=== PATIENT | male | born 1990 | race Caucasian/White ===

== ENCOUNTER 2020-02-01 08:05 | Outpatient (REF) | payer OTHER, SELFPAY ==
[2020-02-01 09:49] LABS: Hematocrit 51.6 % (42-52); Hemoglobin 17.9 g/dl (14.0-18.0); Mean Corpuscular HGB Conc 34.7 g/dl (31.0-36.0); Mean Corpuscular Hemoglobin 32.2 pg (27.0-33.0); Mean Corpuscular Volume 92.8 fL (80-98); Mean Platelet Volume 10.8 fL (9.4-12.4); Platelet Count 183 X10*3/uL (160-400); Red Blood Count 5.56 X10*6/uL (4.60-5.80); Red Cell Distribution Width 12.6 % (11.0-16.0)
[2020-02-01 10:14] LABS: Alanine Aminotransferase 57 U/L (0-40); Albumin Level 4.4 g/dL (3.5-5.0); Alkaline Phosphatase 51 U/L (39-117); Amylase 63 U/L (28-100); Anion Gap 12 (12-20); Aspartate Amino Transferase 31 U/L (5-37); Bilirubin Direct 0.2 mg/dL (0.0-0.5); Bilirubin Total 0.8 mg/dL (0.0-1.0); Blood Urea Nitrogen 13 mg/dL (9-16); Calcium 9.4 mg/dL (8.4-10.2); Carbon Dioxide 30 mmol/L (22-29); Chloride 102 mmol/L (96-108); Estimated Glomerular Filt Rate > 60; Glucose Random 82 mg/dL (60-115); Lipase 32 U/L (8-78); Phosphorus 3.8 mg/dL (2.7-4.5); Potassium 4.4 mmol/l (3.3-5.1); Sodium 140 mmol/L (135-145); Total Protein 6.9 g/dL (6.5-8.0)
[2020-02-01 10:36] LABS: Vitamin D 25-OH Total 29.3 ng/mL (>30)
[2020-02-01 10:44] LABS: Valproate 58.7 mcg/mL (50.0-100.0)
== END 2020-02-01 08:06 | disposition home or self-care (01) ==
LOC: HO.LAB 08:05
PROVIDERS: PCP Internal Medicine; Visit Provider Psychiatry & Neurology Neurology with Special Qualifications in Child Neurology
DX: G40.909 Epilepsy, unspecified, not intractable, without status epilepticus (principal)
CPT/HCPCS: 36415; 80048; 80076; 80164; 82150; 82306; 83690; 83735; 84100; 85027

== ENCOUNTER 2020-08-05 08:07 | Outpatient (REF) | payer OTHER, SELFPAY ==
[2020-08-05 08:59] LABS: Hematocrit 49.4 % (42-52); Hemoglobin 17.2 g/dl (14.0-18.0); Mean Corpuscular HGB Conc 34.8 g/dl (31.0-36.0); Mean Corpuscular Hemoglobin 32.1 pg (27.0-33.0); Mean Corpuscular Volume 92.3 fL (80-98); Mean Platelet Volume 11.7 fL (9.4-12.4); Platelet Count 159 X10*3/uL (160-400); Red Blood Count 5.35 X10*6/uL (4.60-5.80); Red Cell Distribution Width 12.9 % (11.0-16.0); White Blood Count 5.3 X10*3/uL (4.8-10.8)
[2020-08-05 09:24] LABS: Alanine Aminotransferase 54 U/L (0-40); Albumin Level 4.3 g/dL (3.5-5.0); Alkaline Phosphatase 54 U/L (39-117); Amylase 60 U/L (28-100); Anion Gap 11 (12-20); Aspartate Amino Transferase 28 U/L (5-37); Bilirubin Direct 0.3 mg/dL (0.0-0.5); Bilirubin Total 0.8 mg/dL (0.0-1.0); Blood Urea Nitrogen 12 mg/dL (9-16); Calcium 9.9 mg/dL (8.4-10.2); Carbon Dioxide 31 mmol/L (22-29); Chloride 102 mmol/L (96-108); Cholesterol 185 mg/dL; Estimated Glomerular Filt Rate > 60; Glucose Random 90 mg/dL (60-115); HDL Cholesterol 41 mg/dL; LDL Cholesterol Calculated 86 mg/dl; Lipase 34 U/L (8-78); Magnesium 1.9 mg/dL (1.6-2.6); Phosphorus 3.2 mg/dL (2.7-4.5); Potassium 4.5 mmol/L (3.3-5.1); Sodium 139 mmol/L (135-145); Total Protein 6.8 g/dL (6.5-8.0); Triglycerides 294 mg/dL
[2020-08-05 09:45] LABS: Vitamin D 25-OH Total 32.6 ng/mL (>30)
[2020-08-05 09:53] LABS: Valproate 71.2 mcg/mL (50.0-100.0)
[2020-08-08 17:37] LABS: Lamotrigine Lamictal 8.7 mcg/mL (4.0-18.0)
== END 2020-08-05 08:08 | disposition home or self-care (01) ==
LOC: HO.LAB 08:07
PROVIDERS: Absent Provider Psychiatry & Neurology Neurology with Special Qualifications in Child Neurology; PCP Internal Medicine; Visit Provider Internal Medicine
DX: Z13.220 Encounter for screening for lipoid disorders (principal); G40.909 Epilepsy, unspecified, not intractable, without status epilepticus; Z51.81 Encounter for therapeutic drug level monitoring
CPT/HCPCS: 36415; 80048; 80061; 80076; 80164; 80175; 82150; 82306; 83690; 83735; 84100; 85027

== ENCOUNTER 2021-01-30 08:28 | Outpatient (REF) | payer OTHER, SELFPAY ==
[2021-01-30 09:57] LABS: Valproate 71.8 mcg/mL (50.0-100.0)
[2021-01-30 09:59] LABS: Alanine Aminotransferase 67 U/L (0-40); Albumin Level 4.2 g/dL (3.5-5.0); Alkaline Phosphatase 57 U/L (39-117); Amylase 63 U/L (28-100); Anion Gap 11 (12-20); Aspartate Amino Transferase 31 U/L (5-37); Bilirubin Direct 0.2 mg/dL (0.0-0.5); Bilirubin Total 0.7 mg/dL (0.0-1.0); Blood Urea Nitrogen 10 mg/dL (9-16); Calcium 9.2 mg/dL (8.4-10.2); Carbon Dioxide 29 mmol/L (22-29); Chloride 103 mmol/L (96-108); Estimated Glomerular Filt Rate > 60; Glucose Random 89 mg/dL (60-115); Lipase 37 U/L (8-78); Potassium 4.3 mmol/L (3.3-5.1); Sodium 139 mmol/L (135-145); Total Protein 6.7 g/dL (6.5-8.0)
[2021-01-30 10:21] LABS: Vitamin D 25-OH Total 31.5 ng/mL (>30)
[2021-02-03 01:02] LABS: Lamotrigine Lamictal 8.3 mcg/mL (4.0-18.0)
== END 2021-01-30 08:29 | disposition home or self-care (01) ==
LOC: HO.LAB 08:28
PROVIDERS: PCP Internal Medicine; Visit Provider Psychiatry & Neurology Neurology with Special Qualifications in Child Neurology
DX: G40.919 Epilepsy, unspecified, intractable, without status epilepticus (principal); E55.9 Vitamin D deficiency, unspecified; Z79.899 Other long term (current) drug therapy
CPT/HCPCS: 36415; 80053; 80164; 80175; 82150; 82248; 82306; 83690

== ENCOUNTER 2021-08-07 08:11 | Outpatient (REF) | payer OTHER, SELFPAY ==
[2021-08-07 08:29] LABS: MANUAL DIFF FLAG NO
[2021-08-07 08:48] LABS: Basophils Absolute Auto 0.1 X10*3/uL (0.0-0.2); Eosinophils Absolute Auto 0.1 X10*3/uL (0.0-0.4); Eosinophils Percent Auto 2.3 % (0-4); Hematocrit 47.6 % (42.0-52.0); Hemoglobin 16.6 g/dl (14.0-18.0); Imm Gran Abs Auto 0.02 X10*3/uL (0.00-0.03); Imm Gran Pct Auto 0.4 % (0.0-0.4); Lymphocytes Percent Auto 39.5 % (20-40); Mean Corpuscular HGB Conc 34.9 g/dl (31.0-36.0); Mean Corpuscular Hemoglobin 31.5 pg (27.0-33.0); Mean Corpuscular Volume 90.3 fL (80.0-98.0); Mean Platelet Volume 10.7 fL (9.4-12.4); Monocytes Absolute Auto 0.5 X10*3/uL (0.1-1.2); Neutrophils Absolute Auto 2.4 x10*3/uL (2.0-8.3); Neutrophils Percent Auto 46.8 % (45-73); Platelet Count 167 X10*3/uL (160-400); Red Blood Count 5.27 X10*6/uL (4.60-5.80); Red Cell Distribution Width 12.8 % (11.0-16.0); White Blood Count 5.1 X10*3/uL (4.8-10.8)
[2021-08-07 09:28] LABS: Alanine Aminotransferase 45 U/L (0-40); Alkaline Phosphatase 56 U/L (39-117); Amylase 60 U/L (28-100); Anion Gap 12 (12-20); Aspartate Amino Transferase 26 U/L (5-37); Bilirubin Direct 0.2 mg/dL (0.0-0.5); Bilirubin Total 0.8 mg/dL (0.0-1.0); Blood Urea Nitrogen 13 mg/dL (9-16); Calcium 9.7 mg/dL (8.4-10.2); Carbon Dioxide 29 mmol/L (22-29); Chloride 104 mmol/L (96-108); Cholesterol 173 mg/dL; Estimated Glomerular Filt Rate > 60; Glucose Fasting 86 mg/dL (60-99); HDL Cholesterol 35 mg/dL; LDL Cholesterol Calculated 100 mg/dl; Lipase 35 U/L (8-78); Potassium 4.6 mmol/L (3.3-5.1); Sodium 140 mmol/L (135-145); Total Protein 6.4 g/dL (6.5-8.0); Triglycerides 192 mg/dL; Valproate 84.2 mcg/mL (50.0-100.0)
[2021-08-07 09:50] LABS: Vitamin D 25-OH Total 27.4 ng/mL (>30)
== END 2021-08-07 08:12 | disposition home or self-care (01) ==
LOC: HO.LAB 08:11
PROVIDERS: Absent Provider Psychiatry & Neurology Neurology with Special Qualifications in Child Neurology; PCP Internal Medicine; Visit Provider Internal Medicine
DX: Z00.01 Encounter for general adult medical examination with abnormal findings (principal); E55.9 Vitamin D deficiency, unspecified
CPT/HCPCS: 36415; 80053; 80061; 80076; 80164; 82150; 82248; 82306; 83690; 85025

== ENCOUNTER 2022-01-29 07:59 | Outpatient (REF) | payer OTHER, SELFPAY ==
[2022-01-29 08:31] LABS: MANUAL DIFF FLAG NO
[2022-01-29 09:51] LABS: Basophils Absolute Auto 0.1 X10*3/uL (0.0-0.2); Basophils Percent Auto 1.3 % (0-2); Eosinophils Absolute Auto 0.2 X10*3/uL (0.0-0.4); Eosinophils Percent Auto 2.7 % (0-4); Hematocrit 50.4 % (42.0-52.0); Hemoglobin 17.1 g/dl (14.0-18.0); Imm Gran Abs Auto 0.04 X10*3/uL (0.00-0.03); Imm Gran Pct Auto 0.7 % (0.0-0.4); Lymphocytes Absolute Auto 2.6 X10*3/uL (1.2-4.9); Mean Corpuscular HGB Conc 33.9 g/dl (31.0-36.0); Mean Corpuscular Volume 91.5 fL (80.0-98.0); Mean Platelet Volume 11.5 fL (9.4-12.4); Monocytes Absolute Auto 0.6 X10*3/uL (0.1-1.2); Monocytes Percent Auto 10.6 % (2-11); Neutrophils Absolute Auto 2.5 x10*3/uL (2.0-8.3); Neutrophils Percent Auto 41.7 % (45-73); Platelet Count 199 X10*3/uL (160-400); Red Blood Count 5.51 X10*6/uL (4.60-5.80); Red Cell Distribution Width 12.8 % (11.0-16.0)
[2022-01-29 10:27] LABS: Alanine Aminotransferase 71 U/L (0-40); Albumin Level 4.3 g/dL (3.5-5.0); Alkaline Phosphatase 58 U/L (39-117); Amylase 58 U/L (28-100); Anion Gap 16 (12-20); Aspartate Amino Transferase 35 U/L (5-37); Bilirubin Direct 0.3 mg/dL (0.0-0.5); Blood Urea Nitrogen 12 mg/dL (9-16); Calcium 10.2 mg/dL (8.4-10.2); Carbon Dioxide 29 mmol/L (22-29); Chloride 102 mmol/L (96-108); Estimated Glomerular Filt Rate > 60; Glucose Random 80 mg/dL (60-115); Lipase 32 U/L (8-78); Magnesium 1.9 mg/dL (1.6-2.6); Phosphorus 3.9 mg/dL (2.7-4.5); Potassium 4.6 mmol/L (3.3-5.1); Sodium 142 mmol/L (135-145); Total Protein 6.8 g/dL (6.5-8.0)
[2022-01-29 10:33] LABS: Valproate 73.3 mcg/mL (50.0-100.0)
[2022-01-29 10:48] LABS: Vitamin D 25-OH Total 25.3 ng/mL (>30)
[2022-02-02 20:47] LABS: Lamotrigine Lamictal 8.5 mcg/mL (4.0-18.0)
== END 2022-01-29 08:00 | disposition home or self-care (01) ==
LOC: HO.LAB 07:59
PROVIDERS: PCP Internal Medicine; Visit Provider Psychiatry & Neurology Neurology with Special Qualifications in Child Neurology
DX: G40.802 Other epilepsy, not intractable, without status epilepticus (principal); Z79.899 Other long term (current) drug therapy
CPT/HCPCS: 36415; 80048; 80076; 80164; 80175; 82150; 82306; 83690; 83735; 84100; 85025

== ENCOUNTER 2022-07-30 07:55 | Outpatient (REF) | payer OTHER, SELFPAY ==
[2022-07-30 08:17] LABS: MANUAL DIFF FLAG NO
[2022-07-30 08:34] LABS: Basophils Absolute Auto 0.1 X10*3/uL (0.0-0.2); Basophils Percent Auto 1.1 % (0-2); Eosinophils Absolute Auto 0.1 X10*3/uL (0.0-0.4); Eosinophils Percent Auto 1.2 % (0-4); Imm Gran Abs Auto 0.03 X10*3/uL (0.00-0.03); Imm Gran Pct Auto 0.4 % (0.0-0.4); Lymphocytes Absolute Auto 3.1 X10*3/uL (1.2-4.9); Mean Corpuscular Hemoglobin 30.6 pg (27.0-33.0); Mean Corpuscular Volume 90.1 fL (80.0-98.0); Mean Platelet Volume 11.1 fL (9.4-12.4); Monocytes Absolute Auto 0.7 X10*3/uL (0.1-1.2); Monocytes Percent Auto 9.2 % (2-11); Neutrophils Absolute Auto 3.4 x10*3/uL (2.0-8.3); Neutrophils Percent Auto 46.1 % (45-73); Platelet Count 182 X10*3/uL (160-400); Red Blood Count 5.55 X10*6/uL (4.60-5.80); Red Cell Distribution Width 12.9 % (11.0-16.0); White Blood Count 7.4 X10*3/uL (4.8-10.8)
[2022-07-30 08:52] LABS: Valproate 81.9 mcg/mL (50.0-100.0)
[2022-07-30 09:04] LABS: Alanine Aminotransferase 53 U/L (0-40); Albumin Level 4.2 g/dL (3.5-5.0); Alkaline Phosphatase 61 U/L (39-117); Amylase 56 U/L (28-100); Anion Gap 12 (12-20); Aspartate Amino Transferase 27 U/L (5-37); Bilirubin Direct 0.2 mg/dL (0.0-0.5); Bilirubin Total 0.8 mg/dL (0.0-1.0); Blood Urea Nitrogen 11 mg/dL (9-16); Calcium 10.1 mg/dL (8.4-10.2); Carbon Dioxide 31 mmol/L (22-29); Chloride 105 mmol/L (96-108); Cholesterol 185 mg/dL; Estimated Glomerular Filt Rate > 60; Glucose Fasting 90 mg/dL (60-99); Glucose Random 89 mg/dL (60-115); HDL Cholesterol 35 mg/dL; LDL Cholesterol Calculated 95 mg/dl; Lipase 49 U/L (8-78); Potassium 4.6 mmol/L (3.3-5.1); Sodium 143 mmol/L (135-145); Total Protein 6.6 g/dL (6.5-8.0); Triglycerides 275 mg/dL
[2022-07-30 09:18] LABS: Vitamin D 25-OH Total 30.2 ng/mL (>30)
[2022-08-03 19:08] LABS: Lamotrigine Lamictal 8.4 mcg/mL (2.5-15.0)
== END 2022-07-30 07:56 | disposition home or self-care (01) ==
LOC: HO.LAB 07:55
PROVIDERS: Absent Provider Psychiatry & Neurology Neurology with Special Qualifications in Child Neurology; PCP Internal Medicine; Visit Provider Internal Medicine
DX: Z00.01 Encounter for general adult medical examination with abnormal findings (principal); E55.9 Vitamin D deficiency, unspecified; Z20.2 Contact with and (suspected) exposure to infections with a predominantly sexual mode of transmission
CPT/HCPCS: 36415; 80053; 80061; 80164; 80175; 82150; 82248; 82306; 82947; 83690; 85025

== ENCOUNTER 2023-02-18 09:16 | Outpatient (REF) | payer OTHER, SELFPAY ==
[2023-02-18 09:28] LABS: MANUAL DIFF FLAG NO
[2023-02-18 10:12] LABS: Valproate 57.7 mcg/mL (50.0-100.0)
[2023-02-18 10:15] LABS: Alanine Aminotransferase 55 U/L (0-40); Albumin Level 4.2 g/dL (3.5-5.0); Alkaline Phosphatase 59 U/L (39-117); Anion Gap 11 (12-20); Aspartate Amino Transferase 30 U/L (5-37); Basophils Absolute Auto 0.1 X10*3/uL (0.0-0.2); Basophils Percent Auto 1.1 % (0-2); Bilirubin Direct 0.3 mg/dL (0.0-0.5); Bilirubin Total 0.9 mg/dL (0.0-1.0); Blood Urea Nitrogen 11 mg/dL (9-16); Calcium 10.1 mg/dL (8.4-10.2); Carbon Dioxide 31 mmol/L (22-29); Chloride 104 mmol/L (96-108); Eosinophils Absolute Auto 0.1 X10*3/uL (0.0-0.4); Eosinophils Percent Auto 1.5 % (0-4); Estimated Glomerular Filt Rate > 60; Glucose Random 85 mg/dL (60-115); Hematocrit 50.1 % (42.0-52.0); Hemoglobin 17.1 g/dl (14.0-18.0); Imm Gran Abs Auto 0.02 X10*3/uL (0.00-0.03); Imm Gran Pct Auto 0.3 % (0.0-0.4); Lipase 28 U/L (8-78); Lymphocytes Absolute Auto 2.2 X10*3/uL (1.2-4.9); Mean Corpuscular HGB Conc 34.1 g/dl (31.0-36.0); Mean Corpuscular Hemoglobin 30.9 pg (27.0-33.0); Mean Corpuscular Volume 90.4 fL (80.0-98.0); Mean Platelet Volume 11.1 fL (9.4-12.4); Monocytes Absolute Auto 0.6 X10*3/uL (0.1-1.2); Monocytes Percent Auto 10.2 % (2-11); Neutrophils Absolute Auto 3.1 x10*3/uL (2.0-8.3); Neutrophils Percent Auto 50.9 % (45-73); Platelet Count 192 X10*3/uL (160-400); Potassium 4.5 mmol/L (3.3-5.1); Red Blood Count 5.54 X10*6/uL (4.60-5.80); Sodium 141 mmol/L (135-145); Total Protein 6.9 g/dL (6.5-8.0); White Blood Count 6.2 X10*3/uL (4.8-10.8)
[2023-02-18 10:34] LABS: Vitamin D 25-OH Total 28.9 ng/mL (>30)
== END 2023-02-18 09:17 | disposition home or self-care (01) ==
LOC: HO.LAB 09:16
PROVIDERS: PCP Internal Medicine; Visit Provider Psychiatry & Neurology Neurology with Special Qualifications in Child Neurology
DX: G40.919 Epilepsy, unspecified, intractable, without status epilepticus (principal); E55.9 Vitamin D deficiency, unspecified
CPT/HCPCS: 36415; 80053; 80164; 82248; 82306; 83690; 85025

== ENCOUNTER 2023-09-02 09:11 | Outpatient (REF) | payer OTHER, SELFPAY ==
[2023-09-02 09:34] LABS: MANUAL DIFF FLAG NO
[2023-09-02 10:02] LABS: Basophils Absolute Auto 0.1 X10*3/uL (0.0-0.2); Basophils Percent Auto 1.4 % (0-2); Eosinophils Absolute Auto 0.1 X10*3/uL (0.0-0.4); Eosinophils Percent Auto 1.9 % (0-4); Hematocrit 50.5 % (42.0-52.0); Hemoglobin 17.7 g/dl (14.0-18.0); Imm Gran Abs Auto 0.03 X10*3/uL (0.00-0.03); Imm Gran Pct Auto 0.5 % (0.0-0.4); Lymphocytes Absolute Auto 2.7 X10*3/uL (1.2-4.9); Lymphocytes Percent Auto 42.4 % (20-40); Mean Corpuscular Hemoglobin 31.7 pg (27.0-33.0); Mean Corpuscular Volume 90.5 fL (80.0-98.0); Mean Platelet Volume 10.7 fL (9.4-12.4); Monocytes Absolute Auto 0.7 X10*3/uL (0.1-1.2); Monocytes Percent Auto 10.9 % (2-11); Neutrophils Absolute Auto 2.8 x10*3/uL (2.0-8.3); Neutrophils Percent Auto 42.9 % (45-73); Platelet Count 201 X10*3/uL (160-400); Red Blood Count 5.58 X10*6/uL (4.60-5.80); Red Cell Distribution Width 12.9 % (11.0-16.0); White Blood Count 6.4 X10*3/uL (4.8-10.8)
[2023-09-02 10:30] LABS: Valproate 67.2 mcg/mL (50.0-100.0)
[2023-09-02 10:39] LABS: Alanine Aminotransferase 59 U/L (0-40); Albumin Level 4.4 g/dL (3.5-5.0); Alkaline Phosphatase 65 U/L (39-117); Anion Gap 14 (12-20); Aspartate Amino Transferase 28 U/L (5-37); Bilirubin Total 0.9 mg/dL (0.0-1.0); Blood Urea Nitrogen 11 mg/dL (9-16); Calcium 10.3 mg/dL (8.4-10.2); Carbon Dioxide 30 mmol/L (22-29); Chloride 104 mmol/L (96-108); Estimated Glomerular Filt Rate > 60; Glucose Random 88 mg/dL (60-115); Potassium 4.3 mmol/L (3.3-5.1); Sodium 144 mmol/L (135-145); Total Protein 7.3 g/dL (6.5-8.0)
[2023-09-02 10:54] LABS: Vitamin D 25-OH Total 24.2 ng/mL (>30)
[2023-09-06 17:03] LABS: Lamotrigine Lamictal 7.5 mcg/mL (2.5-15.0)
== END 2023-09-02 09:12 | disposition home or self-care (01) ==
LOC: HO.LAB 09:11
PROVIDERS: Visit Provider Psychiatry & Neurology Neurology with Special Qualifications in Child Neurology
DX: E55.9 Vitamin D deficiency, unspecified (principal)
CPT/HCPCS: 36415; 80053; 80164; 80175; 82306; 85025

== ENCOUNTER 2024-03-18 08:52 | Outpatient (REF) | payer OTHER, SELFPAY ==
[2024-03-18 09:10] LABS: MANUAL DIFF FLAG NO
[2024-03-18 09:32] LABS: Basophils Absolute Auto 0.1 X10*3/uL (0.0-0.2); Basophils Percent Auto 1.1 % (0-2); Eosinophils Absolute Auto 0.1 X10*3/uL (0.0-0.4); Eosinophils Percent Auto 1.7 % (0-4); Hematocrit 48.7 % (42.0-52.0); Imm Gran Abs Auto 0.03 X10*3/uL (0.00-0.03); Imm Gran Pct Auto 0.5 % (0.0-0.4); Lymphocytes Absolute Auto 2.8 X10*3/uL (1.2-4.9); Lymphocytes Percent Auto 42.2 % (20-40); Mean Corpuscular HGB Conc 34.9 g/dl (31.0-36.0); Mean Corpuscular Hemoglobin 31.9 pg (27.0-33.0); Mean Corpuscular Volume 91.4 fL (80.0-98.0); Monocytes Absolute Auto 0.7 X10*3/uL (0.1-1.2); Monocytes Percent Auto 9.9 % (2-11); Neutrophils Absolute Auto 2.9 x10*3/uL (2.0-8.3); Neutrophils Percent Auto 44.6 % (45-73); Platelet Count 191 X10*3/uL (160-400); Red Blood Count 5.33 X10*6/uL (4.60-5.80); Red Cell Distribution Width 13.1 % (11.0-16.0); White Blood Count 6.6 X10*3/uL (4.8-10.8)
[2024-03-18 10:02] LABS: Valproate 46.2 mcg/mL (50.0-100.0)
[2024-03-18 10:11] LABS: Alanine Aminotransferase 84 U/L (0-40); Albumin Level 4.2 g/dL (3.5-5.0); Alkaline Phosphatase 64 U/L (39-117); Amylase 51 U/L (28-100); Anion Gap 8 (12-20); Aspartate Amino Transferase 42 U/L (5-37); Bilirubin Direct 0.2 mg/dL (0.0-0.5); Bilirubin Total 0.8 mg/dL (0.0-1.0); Blood Urea Nitrogen 9 mg/dL (9-16); Calcium 10.1 mg/dL (8.4-10.2); Carbon Dioxide 33 mmol/L (22-29); Chloride 104 mmol/L (96-108); Estimated Glomerular Filt Rate > 60; Glucose Random 92 mg/dL (60-115); Lipase 32 U/L (8-78); Potassium 4.3 mmol/L (3.3-5.1); Sodium 141 mmol/L (135-145)
[2024-03-18 10:19] LABS: Vitamin D 25-OH Total 32.2 ng/mL (>30)
[2024-03-22 13:24] LABS: Lamotrigine Lamictal 8.2 mcg/mL (2.5-15.0)
== END 2024-03-18 08:53 | disposition home or self-care (01) ==
LOC: HO.LAB 08:52
PROVIDERS: PCP Internal Medicine; Visit Provider Psychiatry & Neurology Neurology with Special Qualifications in Child Neurology
DX: G40.804 Other epilepsy, intractable, without status epilepticus (principal)
CPT/HCPCS: 36415; 80053; 80164; 80175; 82150; 82248; 82306; 83690; 85025

== ENCOUNTER 2024-11-22 06:51 | Outpatient (REF) | payer MEDICARE, MEDICAID, SELFPAY ==
--- OUTSIDE RECORDS SUMMARY | 2024-11-22 06:56 | XMS_ITS | Clinical Summary ---
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 2 Active escitalopram (Lexapro) 20 mg tablet Take 1 tablet by mouth 1 time each day. 5 Active memantine 10 mg tabletIndications :Cognitive disorder Take 10 mg = 1 tablet by mouth 2 times a day. 180 tablet 3 5 06/02/19 26 Active lamoTRIgine 250 mg tablet extended release 24hr tabletIndications :Other epilepsy, intractable, without status epilepticus (HCC) Take 250 mg = 1 tablet by mouth 1 time each day. 90 tablet 3 5 06/02/19 26 Active divalproex 500 mg extended release tabletIndications :Other epilepsy, intractable, without status epilepticus (HCC) 1 tab in AM and 2 tabs in PM 270 tablet 3 5 Active cholecalciferol 50 MCG (2000 UNIT) tabletIndications :Hypovitaminosis D Take 50 mcg = 1 tablet by mouth 1 time each day. 90 tablet 3 5 06/02/19 26 Active Adult multivitamin 400 mcg tabletIndications :Other epilepsy without status epilepticus, not intractable (HCC) Take 1 tablet by mouth 1 time each day. 90 tablet 3 5 Active cloNIDine 0.1 mg tabletIndications :Cognitive disorder Take 0.1 mg = 1 tablet by mouth at bedtime. 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 Data obtained from [facility] study [id number] and is on file with Luis M Garcia PharmD. 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 Intractable epilepsy 02/11/2013 Overview (08/29/2023): 02/11/2013 22:05 - LINDA BREWER MD Added by [facility] Acquired auditory processing disorder 01/30/2012 Overview (08/29/2023): 01/30/2012 21:15 - LINDA BREWER MD Added by [facility] Disorder of brain 01/30/2012 Overview (08/29/2023): 01/30/2012 21:15 - LINDA BREWER MD Added by [facility] Impulse control disorder 01/30/2012 Overview (08/29/2023): 01/30/2012 21:15 - LINDA BREWER MD Added by [facility] Mixed receptive-expressive language disorder Overview (08/29/2023): 01/30/2012 21:15 - LINDA BREWER MD Added by [facility] Encounters Date Type Department Care Team Description 11/18/2024 Travel from Last 3 Months Social History Tobacco Use Types Packs/Day Years Used Date Smoking Tobacco: Never Smokeless Tobacco: Never Tobacco Cessation:Counseling Given: Not Answered Alcohol Use Standard Drinks/Week Comments Never 0 (1 standard drink = 0.6 oz pur e alcohol) Sex and Gender Information Value Date Recorded Sex Assigned at Not on file Legal Sex Male 2:22 PM EDT Gender Identity Not on file Sexual Orientation Not on file Last Filed Vital Signs Vital Sign Reading Time Taken Comments Blood Pressure 181/89 06/07/2024 10:11 AM EST Pulse - - Temperature - - Respiratory Rate - - Oxygen Saturation - - Inhaled Oxygen Concentration - - Weight 144 kg (317 lb 0.3 oz) 06/07/2024 10:11 A M EST Height 187.6 cm (6' 1.86 ) 09/22/2023 10:15 AM E DT Body Mass Index 40.86 09/22/2023 10:15 AM EDT Plan of Treatment Upcoming Encounters Date Type Department Care Team (Late st Contact Info) Description 11/25/2024 11:00 AM EDT Office Visit [facility] [address] [place] [phone] Linda Brewer MD [address] [facility] [address] [place] [address] Health Maintenance Due Date Last Done Comments HIV Screening 1990 DTaP/Tdap/Td Vaccines (6 - Tdap) 12/09/2003 12/08/2003, 07/07/1995, 12/11/1991, Additional history exists Hepatitis C Screening 2008 HPV Vaccines (1 - 3-dose SCDM series) 2017 COVID-19 Vaccine ( season) 2023 Influenza Vaccine (#1) 2024 , 02/20/2019, 01/12/2019, Additional history exists HIB Vaccines Completed 09/13/1991, 01/09, 1990, Additional history exists IPV Vaccines Completed 07/07/1995, 05/1991, 1990, Additional history exists MMR Vaccines Completed 07/07/1995, 09/13/1991 Hepatitis B Vaccines Completed 05/10/2004, 01/08/2004, 12/08/2003 Meningococcal Vaccine Completed 11/26/2008 Varicella Vaccines Completed 11/26/2008, 01/14/2003 Hepatitis A Vaccines Aged Out No long er eligible based on patient's age to complete this topic Meningococcal B Vaccine Aged Out No l onger eligible based on patient's age to complete this topic Pneumococcal Vaccine: Pediatrics (0 to 5 Years) and At-Risk Patients (6 to 49 Years) Aged Out No longer eligible based on patient's age to complete this topic Rotavirus Vaccines Aged Out No longer eligible based on patient's age to complete this topic Insurance [facility] MEDIC[facility] [place] Care Teams 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
--- OUTSIDE RECORDS SUMMARY | 2024-11-22 06:56 | XMS_ITS | Clinical Summary ---
Author Organization [facility] Address [address] [place] [id number] Phone Care Team Providers Care Cannoneer Name Role Phone Pamela Warner MD Primary Care Provider Unava ilable Immunizations Immunization Administration Dates Next Due DTP 07/07/1995, 2,01/30/1991,11/21,1990 Hep B, ped/adol 05/10/2004,01/08/2004,12/08/2003 Hib (PRP-T) 09/13/1991, 1,1990,08/31 IPV 07/07/1995 MMR 07/07/1995,09/13/1991 Meningococcal Conj (Menactra) MCV4P 11/26/2008 OPV 12/11/1991,1990,1990 Td (adult) (MBL), 2 Lf tetan us toxoid, PF, adsorbed 12/08/2003 Varicella 11/26/2008,01/14/2003 Family History Relation Name Status Comments Brother Alive Brother: dyslex ia,possible seizure diso Father Alive Father: sleep a pnea,moderate leg movem Mother Alive Mother: slight heart murmur and arthri Social History Tobacco Use Types Packs/Day Years Used Date Smoking Tobacco: Never Assessed Sex and Gender Information Value Date Recorded Sex Assigned at Not on file Legal Sex Male 4:39 PM EDT Gender Identity Not on file Sexual Orientation Not on file Last Filed Vital Signs Vital Sign Reading Time Taken Comments Blood Pressure 146/70 03/07/2011 12:00 AM EST Pulse 84 03/07/2011 12:00 AM EST Temperature 36.3 C (97.3 F) 01/12/2011 12:00 AM EDT Respiratory Rate - - Oxygen Saturation - - Inhaled Oxygen Concentration - - Weight 122 kg (270 lb) 03/07/2011 12:00 AM EST Height 184.2 cm (6' 0.5 ) 03/07/2011 12:00 AM ES T Body Mass Index 36.12 03/07/2011 12:00 AM EST Plan of Treatment Health Maintenance Due Date Last Done Comments DTaP,Tdap,and Td Vaccines (6 - Tdap) 12/09/2003 12/08/2003, 07/07/1995, 12/11/1991, Additional history exists HPV Vaccines (1 - 3-dose SCDM series) 2017 COVID-19 Vaccine ( - season) 2023 Influenza Vaccines (#1) 2024 HIB Vaccines Completed 09/13/1991, 01/09, 1990, Additional history exists IPV Vaccines Completed 07/07/1995, 05/1991, 1990, Additional history exists MMR Vaccines Completed 07/07/1995, 09/13/1991 Hepatitis B Vaccines Completed 05/10/2004, 01/08/2004, 12/08/2003 Meningococcal Vaccine Completed 11/26/2008 Varicella Vaccines Completed 11/26/2008, 01/14/2003 Hepatitis A Vaccines Aged Out No long er eligible based on patient's age to complete this topic Men B Vaccine Aged Out No longer elig ible based on patient's age to complete this topic Pneumococcal Vaccine Aged Out No long er eligible based on patient's age to complete this topic Care Teams Cannoneer Relationship Specialty Start Date End Date Pamela Warner MD PCP - General 11/18/16
[2024-11-22 07:12] LABS: MANUAL DIFF FLAG NO
[2024-11-22 07:40] LABS: Hematocrit 48.1 % (42.0-52.0); Hemoglobin 16.9 g/dl (14.0-18.0); Imm Gran Abs Auto 0.03 X10*3/uL (0.00-0.03); Imm Gran Pct Auto 0.4 % (0.0-0.4); Lymphocytes Absolute Auto 3.6 X10*3/uL (1.2-4.9); Mean Corpuscular HGB Conc 35.1 g/dl (31.0-36.0); Mean Corpuscular Hemoglobin 32.0 pg (27.0-33.0); Mean Corpuscular Volume 91.1 fL (80.0-98.0); NRBC Abs Auto 0.000 X10*3/uL (0.0-0.012); NRBC Pct Auto 0.0 /100WBC (0.0-0.2); Platelet Count 199 X10*3/uL (160-400); Red Blood Count 5.28 X10*6/uL (4.60-5.80); White Blood Count 7.6 X10*3/uL (4.8-10.8)
[2024-11-22 08:17] LABS: Alanine Aminotransferase 70 U/L (0-40); Albumin Level 4.6 g/dL (3.5-5.0); Alkaline Phosphatase 71 U/L (39-117); Anion Gap 13 (12-20); Aspartate Amino Transferase 37 U/L (5-37); Blood Urea Nitrogen 10 mg/dL (9-16); Calcium 10.5 mg/dL (8.4-10.2); Carbon Dioxide 31 mmol/L (22-29); Chloride 104 mmol/L (96-108); Estimated Glomerular Filt Rate > 60; Potassium 4.5 mmol/L (3.3-5.1); Sodium 143 mmol/L (135-145); Total Protein 7.1 g/dL (6.5-8.0)
[2024-11-26 18:43] LABS: Lamotrigine Lamictal 8.9 mcg/mL (2.5-15.0)
== END 2024-11-22 06:52 | disposition home or self-care (01) ==
LOC: HO.LAB 06:51
PROVIDERS: PCP Internal Medicine; Visit Provider Psychiatry & Neurology Neurology with Special Qualifications in Child Neurology
DX: G40.804 Other epilepsy, intractable, without status epilepticus (principal)
CPT/HCPCS: 36415; 80053; 80164; 80175; 82306; 85025